=== PATIENT | female | born 1950 | race African-American/Black ===

== ENCOUNTER 2019-06-05 02:36 | Inpatient (IN) ==
[2019-06-05 04:07] LABS: Basophils # 0.1 10*3/uL (0.0-0.2); Basophils % 0.2 % (0.0-0.8); Eosinophils % 0.1 % (0.00-10.9); Hemoglobin 8.6 GM/DL (12.0-16.0); Immature Granulocytes % 3.6 %; Immature Granulocytes Absolute 1.31 #; Lymphocytes # 1.8 10*3/uL (1.4-4.0); Lymphocytes % 4.9 % (21.3-54.2); Mean Corpuscular HGB Conc 31.9 GM/DL (32-36); Mean Corpuscular Volume 90.6 FL (87-102); Mean Platelet Volume 9.7 FL (9.6-12.0); Monocytes % 4.5 % (1.7-12.7); Neutrophils % 86.7 % (38.7-73.9); Platelet Count 607 T/CUMM (130-400); Red Blood Count 2.98 MC/CUMM (3.8-5.5); White Blood Count 36.3 T/CUMM (4-12)
[2019-06-05 04:18] LABS: INR 1.3; PT Patient Result 14.3 SECS (9.6-12.2)
[2019-06-05 04:55] LABS: Albumin 1.5 G/DL (3.4-5.0); Bilirubin,Total 0.5 MG/DL (0.2-1.0); Calcium 8.9 MG/DL (8.5-10.1); Osmolality,Calculated 265.5 MOS/KG (273-304); Total Protein 7.5 G/DL (6.4-8.3)
[2019-06-05] MEDS ORDERED: NITROGLYCERIN SL 0.4 MG TABLET SL STA (05:15)
[2019-06-05] MEDS ORDERED: ASPIRIN EC 325 MG TABLET PO STA (05:15)
[2019-06-05] MEDS ORDERED: LEVOFLOXACIN INJ 750 MG in PREMIX 1 EACH IV STA (05:40)
[2019-06-05 06:16] LABS: Apearance,Urine Slightly Hazy (Clear); Bilirubin,Urine Negative (Negative); Blood, Urine Small mg/dL (Negative); Glucose,Urine (UA) Negative (Negative); Hyaline Casts,Urine 3 /LPF (0-3); Ketones,Urine Negative (Negative); Mucus,Urine Occasional /LPF (Occasional); Nitrite,Urine Negative (Negative); Protein,Urine 30 MG/DL; RBC,Urine 7 /HPF (0-4); Squamous Epithelial Cell,Urine Few /HPF (0-10); Urine Color Yellow (Yellow); Urine Specific Gravity 1.021 (1.001-1.035); Urine Urobilinogen < 2.0 EU/DL (0.2-1.0); WBC,Urine 8 /HPF (0-6)
[2019-06-05 06:16] LABS: Anisocytosis 1+; Band Neutrophils 1 % (0-10); Lymphocytes 10 % (20-55); Platelet Estimate Increased; Segmented Neutrophils 85 % (50-85); Total Cells Counted 100
[2019-06-05] MEDS ORDERED: ONDANSETRON 4 MG/2 ML VIAL IV PRN (10:16)
[2019-06-05] MEDS ORDERED: CALCIUM (CARBONATE) 600 MG TABLET PO PRN (10:23)
[2019-06-05] MEDS: PIPERACILLIN/TAZOBACTAM 3,375 MG in SODIUM CHLORIDE 0.9% 100 ML IV SCH ×2 (12:22→21:42)
[2019-06-05 12:49] LABS: % Iron Saturation 22.7 % (18-50); Ferritin 1874.5 ng/ml (8-252)
[2019-06-05 12:56] LABS: Folate 6.9 NG/ML (5.4-24.0)
[2019-06-05] MEDS: ALBUTEROL/IPRATROPIUM 3 ML NEB RESP TX SCH ×2 (14:24→20:03)
[2019-06-05] MEDS: VANCOMYCIN INJ 1,500 MG in SODIUM CHLORIDE 0.9% 500 ML IV SCH (17:10)
[2019-06-06] MEDS: ALBUTEROL/IPRATROPIUM 3 ML NEB RESP TX SCH ×4 (00:15→19:18)
[2019-06-06] MEDS: PIPERACILLIN/TAZOBACTAM 3,375 MG in SODIUM CHLORIDE 0.9% 100 ML IV SCH ×3 (05:04→21:35)
[2019-06-06 05:55] LABS: Basophils # 0.1 10*3/uL (0.0-0.2); Basophils % 0.2 % (0.0-0.8); Eosinophils % 0.1 % (0.00-10.9); Hematocrit 26.4 VOL% (35.7-47.0); Hemoglobin 8.6 GM/DL (12.0-16.0); Immature Granulocytes % 4.1 %; Lymphocytes # 2.3 10*3/uL (1.4-4.0); Lymphocytes % 6.4 % (21.3-54.2); Mean Corpuscular HGB Conc 32.6 GM/DL (32-36); Mean Corpuscular Volume 89.8 FL (87-102); Mean Platelet Volume 9.4 FL (9.6-12.0); Monocytes % 4.9 % (1.7-12.7); Neutrophils % 84.3 % (38.7-73.9); Platelet Count 571 T/CUMM (130-400); Red Blood Count 2.94 MC/CUMM (3.8-5.5); White Blood Count 36.7 T/CUMM (4-12)
[2019-06-06 06:17] LABS: Albumin 1.4 G/DL (3.4-5.0); Calcium 8.8 MG/DL (8.5-10.1); Osmolality,Calculated 273.1 MOS/KG (273-304); Risk Ratio 7.94; Thyroid Stimulating Hormone 2.55 uIU/ml (0.358-3.74); Total Protein 7.3 G/DL (6.4-8.3); VLDL CHOLESTEROL 13.6 MG/DL
[2019-06-06 06:18] LABS: Anisocytosis 1+; Band Neutrophils 2 % (0-10); Eosinophils 1 % (0-10); Hypochromasia 1+; Lymphocytes 7 % (20-55); Microcytosis 1+; Platelet Estimate Increased; Segmented Neutrophils 84 % (50-85); Total Cells Counted 100
[2019-06-06] MEDS: ASPIRIN EC 81 MG TABLET PO SCH (09:39)
[2019-06-06] MEDS: PANTOPRAZOLE 40 MG TABLET PO SCH (09:39)
[2019-06-06] MEDS: amLODIPine 5 MG TABLET PO SCH (09:39)
[2019-06-06] MEDS: allopurinoL 300 MG TABLET PO SCH (09:39)
[2019-06-06] MEDS: METOPROLOL SUCCINATE XL 50 MG TABLET PO SCH (09:39)
[2019-06-06] MEDS: POTASSIUM CHLORIDE 10 MEQ TABLET PO SCH (09:39)
[2019-06-06] MEDS: VANCOMYCIN INJ 1,500 MG in SODIUM CHLORIDE 0.9% 500 ML IV SCH (12:16)
[2019-06-07] MEDS: ALBUTEROL/IPRATROPIUM 3 ML NEB RESP TX SCH ×4 (00:07→19:48)
[2019-06-07] MEDS: PIPERACILLIN/TAZOBACTAM 3,375 MG in SODIUM CHLORIDE 0.9% 100 ML IV SCH ×3 (05:08→20:44)
[2019-06-07 05:58] LABS: Basophils # 0.1 10*3/uL (0.0-0.2); Basophils % 0.2 % (0.0-0.8); Eosinophils # 0.1 10*3/uL (0.0-0.87); Eosinophils % 0.2 % (0.00-10.9); Immature Granulocytes % 3.4 %; Immature Granulocytes Absolute 1.12 #; Lymphocytes # 1.9 10*3/uL (1.4-4.0); Lymphocytes % 5.9 % (21.3-54.2); Mean Corpuscular HGB Conc 33.3 GM/DL (32-36); Mean Corpuscular Volume 88.2 FL (87-102); Mean Platelet Volume 9.6 FL (9.6-12.0); Monocytes % 4.4 % (1.7-12.7); Neutrophils % 85.9 % (38.7-73.9); Platelet Count 578 T/CUMM (130-400); Red Blood Count 2.72 MC/CUMM (3.8-5.5); Red Cell Distribution Width 15.2 % (9.3-17.3)
[2019-06-07 06:18] LABS: Band Neutrophils 2 % (0-10); Hypochromasia 1+; Lymphocytes 5 % (20-55); Microcytosis 1+; Platelet Estimate Adequate; Segmented Neutrophils 91 % (50-85); Total Cells Counted 100
[2019-06-07 06:19] LABS: Albumin 1.4 G/DL (3.4-5.0); Bilirubin,Total 1.5 MG/DL (0.2-1.0); Calcium 8.7 MG/DL (8.5-10.1); Osmolality,Calculated 277.7 MOS/KG (273-304); Total Protein 7.3 G/DL (6.4-8.3)
[2019-06-07 07:06] LABS: HIV Antigen/Antibody Result Nonreactive (Nonreactive)
[2019-06-07 07:25] LABS: Total Protein (Chem) 7.3 G/DL (6.4-8.3)
[2019-06-07] MEDS: amLODIPine 5 MG TABLET PO SCH (08:39)
[2019-06-07] MEDS: allopurinoL 300 MG TABLET PO SCH (08:39)
[2019-06-07] MEDS: METOPROLOL SUCCINATE XL 50 MG TABLET PO SCH (08:39)
[2019-06-07] MEDS: ASPIRIN EC 81 MG TABLET PO SCH (08:39)
[2019-06-07] MEDS: POTASSIUM CHLORIDE 10 MEQ TABLET PO SCH (08:39)
[2019-06-07] MEDS: PANTOPRAZOLE 40 MG TABLET PO SCH (08:39)
[2019-06-07 10:24] LABS: Albumin (SPE) 2.1 G/DL (3.2-5.3); Albumin (SPE) Rel % 28.5 %; Alpha 1 (SPE) 0.7 G/DL (0.1-0.4); Alpha 1 (SPE) Rel % 9.3 %; Alpha 2 (SPE) 1.3 G/DL (0.4-1.0); Alpha 2 (SPE) Rel % 18.4 %; Beta (SPE) Rel % 14.1 %; Gamma (SPE) 2.2 G/DL (0.7-1.7); Gamma (SPE) Rel % 29.7 %
[2019-06-07] MEDS: POLYETHYLENE GLYCOL POWDER 17 GM PACK PO SCH (15:17)
[2019-06-07 20:43] LABS: Total Protein 24 Hr Ur Result 686 MG/24HR (0-149.1); Total Volume,Urine 1400 ML (400-2000)
[2019-06-07] MEDS: ACETAMINOPHEN 325 MG TABLET PO PRN (20:45)
[2019-06-08] MEDS: ALBUTEROL/IPRATROPIUM 3 ML NEB RESP TX SCH ×4 (02:07→19:49)
[2019-06-08] MEDS: PIPERACILLIN/TAZOBACTAM 3,375 MG in SODIUM CHLORIDE 0.9% 100 ML IV SCH ×2 (04:39→15:58)
[2019-06-08 05:59] LABS: Basophils # 0.1 10*3/uL (0.0-0.2); Basophils % 0.2 % (0.0-0.8); Eosinophils % 0.1 % (0.00-10.9); Hematocrit 25.4 VOL% (35.7-47.0); Hemoglobin 7.9 GM/DL (12.0-16.0); Immature Granulocytes % 3.3 %; Immature Granulocytes Absolute 1.17 #; Lymphocytes # 2.1 10*3/uL (1.4-4.0); Lymphocytes % 5.8 % (21.3-54.2); Mean Corpuscular HGB Conc 31.1 GM/DL (32-36); Mean Platelet Volume 9.7 FL (9.6-12.0); Monocytes % 3.9 % (1.7-12.7); Neutrophils % 86.7 % (38.7-73.9); Platelet Count 596 T/CUMM (130-400); Red Blood Count 2.76 MC/CUMM (3.8-5.5); Red Cell Distribution Width 15.3 % (9.3-17.3); White Blood Count 35.1 T/CUMM (4-12)
[2019-06-08 06:21] LABS: Albumin 1.4 G/DL (3.4-5.0); Band Neutrophils 5 % (0-10); Bilirubin,Total 0.7 MG/DL (0.2-1.0); Calcium 8.7 MG/DL (8.5-10.1); Hypochromasia 1+; Lymphocytes 6 % (20-55); Osmolality,Calculated 276.7 MOS/KG (273-304); Platelet Estimate Adequate; Segmented Neutrophils 84 % (50-85); Total Cells Counted 100; Total Protein 7.3 G/DL (6.4-8.3)
[2019-06-08 06:22] LABS: Microcytosis 1+
[2019-06-08 07:13] LABS: 24 Hr Protein (Bench) 686 MG/24HR (0-149.1)
[2019-06-08] MEDS: PANTOPRAZOLE 40 MG TABLET PO SCH (08:43)
[2019-06-08] MEDS: POTASSIUM CHLORIDE 10 MEQ TABLET PO SCH (08:43)
[2019-06-08] MEDS: POLYETHYLENE GLYCOL POWDER 17 GM PACK PO SCH (08:43)
[2019-06-08] MEDS: allopurinoL 300 MG TABLET PO SCH (08:44)
[2019-06-08] MEDS: amLODIPine 5 MG TABLET PO SCH (08:44)
[2019-06-08] MEDS: ASPIRIN EC 81 MG TABLET PO SCH (08:44)
[2019-06-08] MEDS: METOPROLOL SUCCINATE XL 50 MG TABLET PO SCH (08:44)
[2019-06-09] MEDS: ALBUTEROL/IPRATROPIUM 3 ML NEB RESP TX SCH ×4 (00:13→19:17)
[2019-06-09] MEDS: PIPERACILLIN/TAZOBACTAM 3,375 MG in SODIUM CHLORIDE 0.9% 100 ML IV SCH ×3 (02:10→16:51)
[2019-06-09] MEDS: POTASSIUM CHLORIDE 10 MEQ TABLET PO SCH (09:42)
[2019-06-09] MEDS: amLODIPine 5 MG TABLET PO SCH (09:42)
[2019-06-09] MEDS: METOPROLOL SUCCINATE XL 50 MG TABLET PO SCH (09:42)
[2019-06-09] MEDS: allopurinoL 300 MG TABLET PO SCH (09:42)
[2019-06-09] MEDS: ASPIRIN EC 81 MG TABLET PO SCH (09:42)
[2019-06-09] MEDS: POLYETHYLENE GLYCOL POWDER 17 GM PACK PO SCH (09:42)
[2019-06-09] MEDS: PANTOPRAZOLE 40 MG TABLET PO SCH (09:42)
[2019-06-09 10:31] LABS: Basophils # 0.1 10*3/uL (0.0-0.2); Basophils % 0.2 % (0.0-0.8); Eosinophils % 0.1 % (0.00-10.9); Hematocrit 25.2 VOL% (35.7-47.0); Immature Granulocytes % 3.7 %; Immature Granulocytes Absolute 1.26 #; Lymphocytes # 1.5 10*3/uL (1.4-4.0); Lymphocytes % 4.4 % (21.3-54.2); Mean Corpuscular HGB Conc 31.7 GM/DL (32-36); Mean Corpuscular Volume 90.3 FL (87-102); Mean Platelet Volume 9.5 FL (9.6-12.0); Monocytes % 3.8 % (1.7-12.7); Neutrophils % 87.8 % (38.7-73.9); Platelet Count 560 T/CUMM (130-400); Red Blood Count 2.79 MC/CUMM (3.8-5.5); Red Cell Distribution Width 15.2 % (9.3-17.3); White Blood Count 33.8 T/CUMM (4-12)
[2019-06-09 10:50] LABS: Calcium 8.8 MG/DL (8.5-10.1); Hypochromasia 1+; Osmolality,Calculated 276.1 MOS/KG (273-304); Platelet Estimate Adequate
[2019-06-09 10:51] LABS: Macrocytosis Slight; Polychromasia Slight
[2019-06-09 11:07] LABS: Band Neutrophils 7 % (0-10); Lymphocytes 4 % (20-55); Segmented Neutrophils 85 % (50-85); Total Cells Counted 100
[2019-06-10] MEDS: PIPERACILLIN/TAZOBACTAM 3,375 MG in SODIUM CHLORIDE 0.9% 100 ML IV SCH ×3 (00:23→16:19)
[2019-06-10] MEDS: ALBUTEROL/IPRATROPIUM 3 ML NEB RESP TX SCH ×4 (01:00→19:15)
[2019-06-10 04:20] LABS: Basophils # 0.1 10*3/uL (0.0-0.2); Basophils % 0.2 % (0.0-0.8); Eosinophils % 0.1 % (0.00-10.9); Hematocrit 24.1 VOL% (35.7-47.0); Hemoglobin 7.6 GM/DL (12.0-16.0); Immature Granulocytes % 3.5 %; Immature Granulocytes Absolute 1.16 #; Lymphocytes # 1.7 10*3/uL (1.4-4.0); Lymphocytes % 5.2 % (21.3-54.2); Mean Corpuscular HGB Conc 31.5 GM/DL (32-36); Mean Corpuscular Volume 89.9 FL (87-102); Mean Platelet Volume 9.6 FL (9.6-12.0); Monocytes % 3.7 % (1.7-12.7); Neutrophils % 87.3 % (38.7-73.9); Platelet Count 593 T/CUMM (130-400); Red Blood Count 2.68 MC/CUMM (3.8-5.5); Red Cell Distribution Width 15.5 % (9.3-17.3); White Blood Count 33.5 T/CUMM (4-12)
[2019-06-10 04:41] LABS: Calcium 8.6 MG/DL (8.5-10.1); Osmolality,Calculated 272.4 MOS/KG (273-304)
[2019-06-10 04:44] LABS: Lymphocytes 5 % (20-55); Platelet Estimate Adequate; Segmented Neutrophils 92 % (50-85); Total Cells Counted 100
[2019-06-10 04:45] LABS: Hypochromasia 1+; Macrocytosis Slight
[2019-06-10] MEDS: POLYETHYLENE GLYCOL POWDER 17 GM PACK PO SCH (08:39)
[2019-06-10] MEDS: POTASSIUM CHLORIDE 10 MEQ TABLET PO SCH (08:40)
[2019-06-10] MEDS: ASPIRIN EC 81 MG TABLET PO SCH (08:40)
[2019-06-10] MEDS: PANTOPRAZOLE 40 MG TABLET PO SCH (08:40)
[2019-06-10] MEDS: amLODIPine 5 MG TABLET PO SCH (08:40)
[2019-06-10] MEDS: allopurinoL 300 MG TABLET PO SCH (08:40)
[2019-06-10] MEDS: METOPROLOL SUCCINATE XL 50 MG TABLET PO SCH (08:41)
[2019-06-10] MEDS ORDERED: GLUCAGON 1 MG VIAL IM PRN (13:39)
[2019-06-10] MEDS ORDERED: DEXTROSE 10% 250 ML BAG IV PRN (13:39)
[2019-06-11] MEDS: PIPERACILLIN/TAZOBACTAM 3,375 MG in SODIUM CHLORIDE 0.9% 100 ML IV SCH ×2 (00:24→09:27)
[2019-06-11] MEDS: ALBUTEROL/IPRATROPIUM 3 ML NEB RESP TX SCH ×4 (01:15→19:18)
[2019-06-11 05:40] LABS: Basophils # 0.1 10*3/uL (0.0-0.2); Basophils % 0.2 % (0.0-0.8); Eosinophils % 0.1 % (0.00-10.9); Hematocrit 25.6 VOL% (35.7-47.0); Hemoglobin 8.2 GM/DL (12.0-16.0); Immature Granulocytes % 3.5 %; Immature Granulocytes Absolute 1.18 #; Lymphocytes # 2.1 10*3/uL (1.4-4.0); Lymphocytes % 6.4 % (21.3-54.2); Mean Platelet Volume 9.4 FL (9.6-12.0); Monocytes % 3.8 % (1.7-12.7); Platelet Count 624 T/CUMM (130-400); Red Blood Count 2.91 MC/CUMM (3.8-5.5); Red Cell Distribution Width 15.4 % (9.3-17.3); White Blood Count 33.3 T/CUMM (4-12)
[2019-06-11 05:53] LABS: Calcium 8.4 MG/DL (8.5-10.1); Osmolality,Calculated 271.4 MOS/KG (273-304)
[2019-06-11 06:16] LABS: Anisocytosis 1+; Hypochromasia 1+; Lymphocytes 10 % (20-55); Segmented Neutrophils 90 % (50-85); Total Cells Counted 100
[2019-06-11 06:17] LABS: Platelet Estimate Increased
[2019-06-11] MEDS: amLODIPine 5 MG TABLET PO SCH (09:27)
[2019-06-11] MEDS: METOPROLOL SUCCINATE XL 50 MG TABLET PO SCH (09:27)
[2019-06-11] MEDS: ASPIRIN EC 81 MG TABLET PO SCH (09:27)
[2019-06-11] MEDS: allopurinoL 300 MG TABLET PO SCH (09:27)
[2019-06-11] MEDS: PANTOPRAZOLE 40 MG TABLET PO SCH (09:27)
[2019-06-11] MEDS: POTASSIUM CHLORIDE 10 MEQ TABLET PO SCH (09:27)
[2019-06-11] MEDS: POLYETHYLENE GLYCOL POWDER 17 GM PACK PO SCH (09:27)
[2019-06-11] MEDS ORDERED: FUROSEMIDE 40 MG/4 ML VIAL IV ONE (16:00)
[2019-06-11] MEDS: MEROPENEM 500 MG in SODIUM CHLORIDE 0.9% 100 ML IV SCH ×2 (16:40→21:35)
[2019-06-12] MEDS: ALBUTEROL/IPRATROPIUM 3 ML NEB RESP TX SCH ×4 (02:50→20:10)
[2019-06-12] MEDS: MEROPENEM 500 MG in SODIUM CHLORIDE 0.9% 100 ML IV SCH ×4 (03:02→21:41)
[2019-06-12 06:29] LABS: Basophils # 0.1 10*3/uL (0.0-0.2); Basophils % 0.2 % (0.0-0.8); Eosinophils % 0.1 % (0.00-10.9); Hematocrit 23.7 VOL% (35.7-47.0); Hemoglobin 7.8 GM/DL (12.0-16.0); Immature Granulocytes % 3.1 %; Immature Granulocytes Absolute 0.92 #; Lymphocytes # 2.1 10*3/uL (1.4-4.0); Mean Corpuscular HGB Conc 32.9 GM/DL (32-36); Mean Corpuscular Volume 86.5 FL (87-102); Mean Platelet Volume 9.3 FL (9.6-12.0); Monocytes % 4.3 % (1.7-12.7); Neutrophils % 85.3 % (38.7-73.9); Platelet Count 585 T/CUMM (130-400); Red Blood Count 2.74 MC/CUMM (3.8-5.5); Red Cell Distribution Width 15.3 % (9.3-17.3); White Blood Count 29.7 T/CUMM (4-12)
[2019-06-12 06:57] LABS: Band Neutrophils 2 % (0-10); Lymphocytes 8 % (20-55); Segmented Neutrophils 86 % (50-85); Total Cells Counted 100
[2019-06-12 06:58] LABS: Hypochromasia 1+; Target Cells Slight
[2019-06-12 06:59] LABS: Macrocytosis Slight; Platelet Estimate Increased
[2019-06-12 07:34] LABS: Calcium 8.6 MG/DL (8.5-10.1); Osmolality,Calculated 270.4 MOS/KG (273-304)
[2019-06-12] MEDS: allopurinoL 300 MG TABLET PO SCH (09:03)
[2019-06-12] MEDS: METOPROLOL SUCCINATE XL 50 MG TABLET PO SCH (09:03)
[2019-06-12] MEDS: POTASSIUM CHLORIDE 10 MEQ TABLET PO SCH (09:03)
[2019-06-12] MEDS: amLODIPine 5 MG TABLET PO SCH (09:03)
[2019-06-12] MEDS: ASPIRIN EC 81 MG TABLET PO SCH (09:03)
[2019-06-12] MEDS: PANTOPRAZOLE 40 MG TABLET PO SCH (09:03)
[2019-06-12] MEDS: POLYETHYLENE GLYCOL POWDER 17 GM PACK PO SCH (09:03)
[2019-06-13] MEDS: ALBUTEROL/IPRATROPIUM 3 ML NEB RESP TX SCH ×3 (00:20→12:39)
[2019-06-13] MEDS: MEROPENEM 500 MG in SODIUM CHLORIDE 0.9% 100 ML IV SCH ×2 (03:49→08:37)
[2019-06-13] MEDS: ACETAMINOPHEN 325 MG TABLET PO PRN (03:55)
[2019-06-13 06:12] LABS: Basophils % 0.2 % (0.0-0.8); Eosinophils % 0.1 % (0.00-10.9); Hematocrit 23.5 VOL% (35.7-47.0); Hemoglobin 7.5 GM/DL (12.0-16.0); Immature Granulocytes % 2.4 %; Immature Granulocytes Absolute 0.54 #; Lymphocytes % 8.9 % (21.3-54.2); Mean Corpuscular HGB Conc 31.9 GM/DL (32-36); Mean Platelet Volume 9.2 FL (9.6-12.0); Monocytes % 4.8 % (1.7-12.7); Neutrophils % 83.6 % (38.7-73.9); Platelet Count 606 T/CUMM (130-400); Red Blood Count 2.67 MC/CUMM (3.8-5.5); Red Cell Distribution Width 15.1 % (9.3-17.3); White Blood Count 22.3 T/CUMM (4-12)
[2019-06-13 06:34] LABS: Calcium 8.3 MG/DL (8.5-10.1); Osmolality,Calculated 273.1 MOS/KG (273-304)
[2019-06-13 07:36] LABS: Band Neutrophils 1 % (0-10); Lymphocytes 12 % (20-55); Segmented Neutrophils 81 % (50-85); Total Cells Counted 100
[2019-06-13 07:37] LABS: Hypochromasia 1+; Macrocytosis Slight; Platelet Estimate Increased; Target Cells Slight
[2019-06-13] MEDS: POTASSIUM CHLORIDE 10 MEQ TABLET PO SCH (08:34)
[2019-06-13] MEDS: PANTOPRAZOLE 40 MG TABLET PO SCH (08:34)
[2019-06-13] MEDS: allopurinoL 300 MG TABLET PO SCH (08:34)
[2019-06-13] MEDS: amLODIPine 5 MG TABLET PO SCH (08:34)
[2019-06-13] MEDS: ASPIRIN EC 81 MG TABLET PO SCH (08:34)
[2019-06-13] MEDS: POLYETHYLENE GLYCOL POWDER 17 GM PACK PO SCH (08:34)
[2019-06-13] MEDS: METOPROLOL SUCCINATE XL 50 MG TABLET PO SCH (08:35)
[2019-06-13 12:00] VITALS: BP 119/64
== END 2019-06-13 14:45 | disposition home or self-care (01) | DRG 689 ==
LOC: N.ED 02:36 → SUATTDRO 10:14 → N.EDINP 10:14 → N.2E 11:22
PROVIDERS: ADMIT Internal Medicine; ATTEND Internal Medicine Geriatric Medicine

== ENCOUNTER 2019-09-25 22:15 | Inpatient (IN) ==
[2019-09-25 22:50] LABS: Basophils % 0.2 % (0.0-0.8); Eosinophils % 0.2 % (0.00-10.9); Hematocrit 31.6 VOL% (35.7-47.0); Hemoglobin 9.9 GM/DL (12.0-16.0); Immature Granulocytes % 1.3 %; Immature Granulocytes Absolute 0.23 #; Lymphocytes # 2.1 10*3/uL (1.4-4.0); Lymphocytes % 11.5 % (21.3-54.2); Mean Corpuscular HGB Conc 31.3 GM/DL (32-36); Mean Corpuscular Volume 85.9 FL (87-102); Mean Platelet Volume 8.6 FL (9.6-12.0); Monocytes % 6.4 % (1.7-12.7); Neutrophils % 80.4 % (38.7-73.9); Platelet Count 603 T/CUMM (130-400); Red Blood Count 3.68 MC/CUMM (3.8-5.5); Red Cell Distribution Width 16.2 % (9.3-17.3); White Blood Count 18.3 T/CUMM (4-12)
[2019-09-25 23:08] LABS: Alanine Aminotransferase 96 U/L (13-56); Albumin 2.4 G/DL (3.4-5.0); Alkaline Phosphatase 213 U/L (45-117); Aspartate Amino Transferase 74 U/L (0-37); Bilirubin,Total < 0.39 MG/DL (0.2-1.0); Blood Urea Nitrogen 11 MG/DL (7-18); Calcium 9.8 MG/DL (8.5-10.1); Estimated Glom Filtration Rate 114 ML/MIN; Glucose 112 MG/DL (74-106); Osmolality,Calculated 259.8 MOS/KG (273-304)
[2019-09-25] MEDS ORDERED: LEVOFLOXACIN INJ 750 MG in PREMIX 1 EACH IV STA (23:38)
[2019-09-26 00:09] LABS: Apearance,Urine CLEAR (Clear); Bilirubin,Urine Negative (Negative); Blood, Urine Negative (Negative); Glucose,Urine (UA) Negative (Negative); Ketones,Urine Negative (Negative); Mucus,Urine Occasional /LPF (Occasional); Nitrite,Urine Negative (Negative); Protein,Urine Negative; RBC,Urine 3 /HPF (0-4); Squamous Epithelial Cell,Urine Occasional /HPF (0-10); Urine Color Yellow (Yellow); Urine Specific Gravity 1.013 (1.001-1.035); WBC,Urine 1 /HPF (0-6)
[2019-09-26] MEDS ORDERED: PROMETHAZINE 25 MG/1 ML VIAL IM PRN (02:16)
[2019-09-26] MEDS ORDERED: diphenhydrAMINE CAP 25 MG CAPSULE PO PRN (02:16)
[2019-09-26] MEDS ORDERED: NICOTINE 21 MG/24 HR PATCH TRANSDERM PRN (02:16)
[2019-09-26] MEDS ORDERED: ZALEPLON 5 MG CAPSULE PO PRN (02:16)
[2019-09-26] MEDS ORDERED: DOCUSATE SODIUM 100 MG CAPSULE PO PRN (02:16)
[2019-09-26] MEDS ORDERED: guaiFENesin/DM ER 600-30 MG TABLET PO PRN (02:16)
[2019-09-26] MEDS ORDERED: hydrALAZINE 20 MG/1 ML VIAL IV PRN (02:16)
[2019-09-26] MEDS ORDERED: DEXTROSE 50% 25 GM/50 ML VIAL IV PRN (02:16)
[2019-09-26] MEDS ORDERED: GLUCAGON 1 MG VIAL IM PRN (02:16)
[2019-09-26] MEDS ORDERED: ACETAMINOPHEN 325 MG TABLET PO PRN (02:16)
[2019-09-26] MEDS ORDERED: ONDANSETRON 4 MG/2 ML VIAL IV PRN (02:16)
[2019-09-26] MEDS: SODIUM CHLORIDE 0.9% 1,000 ML IV SCH ×2 (03:37→17:35)
[2019-09-26] MEDS ORDERED: ENOXAPARIN 100 MG/ML SYRINGE SUBCUT ONE (06:00)
[2019-09-26 06:47] LABS: Basophils % 0.2 % (0.0-0.8); Eosinophils # 0.1 10*3/uL (0.0-0.87); Eosinophils % 0.3 % (0.00-10.9); Hemoglobin 10.1 GM/DL (12.0-16.0); Immature Granulocytes % 1.1 %; Immature Granulocytes Absolute 0.22 #; Lymphocytes # 3.4 10*3/uL (1.4-4.0); Lymphocytes % 17.7 % (21.3-54.2); Mean Corpuscular HGB Conc 31.6 GM/DL (32-36); Mean Corpuscular Volume 85.1 FL (87-102); Mean Platelet Volume 8.7 FL (9.6-12.0); Monocytes % 8.6 % (1.7-12.7); Neutrophils % 72.1 % (38.7-73.9); Platelet Count 585 T/CUMM (130-400); Red Blood Count 3.76 MC/CUMM (3.8-5.5); Red Cell Distribution Width 16.2 % (9.3-17.3); White Blood Count 19.2 T/CUMM (4-12)
[2019-09-26 07:04] LABS: Alanine Aminotransferase 79 U/L (13-56); Albumin 2.2 G/DL (3.4-5.0); Alkaline Phosphatase 213 U/L (45-117); Aspartate Amino Transferase 53 U/L (0-37); Bilirubin,Total < 0.39 MG/DL (0.2-1.0); Blood Urea Nitrogen 9 MG/DL (7-18); Calcium 9.7 MG/DL (8.5-10.1); Estimated Glom Filtration Rate 113 ML/MIN; Glucose 113 MG/DL (74-106); Osmolality,Calculated 263.5 MOS/KG (273-304); Total Protein 8.7 G/DL (6.4-8.3)
[2019-09-26] MEDS ORDERED: POLYETHYLENE GLYCOL POWDER 17 GM PACK PO PRN (09:25)
[2019-09-26] MEDS: methylPREDNISolone SOD SUC 40 MG/1 ML VIAL IV SCH ×3 (09:53→23:33)
[2019-09-26] MEDS: POTASSIUM CHLORIDE 10 MEQ TABLET PO SCH (09:56)
[2019-09-26] MEDS: PANTOPRAZOLE 40 MG TABLET PO SCH (09:56)
[2019-09-26] MEDS: amLODIPine 5 MG TABLET PO SCH (09:56)
[2019-09-26] MEDS: METOPROLOL SUCCINATE XL 50 MG TABLET PO SCH ×2 (09:56→20:39)
[2019-09-26] MEDS: ASPIRIN EC 81 MG TABLET PO SCH (09:56)
[2019-09-26] MEDS: allopurinoL 300 MG TABLET PO SCH (09:56)
[2019-09-26] MEDS: VANCOMYCIN INJ 1,250 MG in SODIUM CHLORIDE 0.9% 250 ML IV SCH ×2 (11:39→22:09)
[2019-09-26] MEDS: LEVOFLOXACIN INJ 500 MG in PREMIX 1 EACH IV SCH (20:41)
[2019-09-27 06:10] LABS: Basophils % 0.1 % (0.0-0.8); Hematocrit 30.1 VOL% (35.7-47.0); Hemoglobin 9.5 GM/DL (12.0-16.0); Immature Granulocytes % 1.1 %; Immature Granulocytes Absolute 0.24 #; Lymphocytes # 1.3 10*3/uL (1.4-4.0); Lymphocytes % 6.2 % (21.3-54.2); Mean Corpuscular HGB Conc 31.6 GM/DL (32-36); Mean Corpuscular Volume 84.8 FL (87-102); Mean Platelet Volume 9.4 FL (9.6-12.0); Monocytes % 2.2 % (1.7-12.7); Neutrophils % 90.4 % (38.7-73.9); Platelet Count 643 T/CUMM (130-400); Red Blood Count 3.55 MC/CUMM (3.8-5.5); Red Cell Distribution Width 16.2 % (9.3-17.3); White Blood Count 21.7 T/CUMM (4-12)
[2019-09-27 06:36] LABS: Hypochromasia 2+; Lymphocytes 10 % (20-55); Microcytosis Slight; Ovalocytes Slight; Platelet Estimate Increased; Segmented Neutrophils 89 % (50-85); Total Cells Counted 100
[2019-09-27 06:43] LABS: Calcium 10.5 MG/DL (8.5-10.1); Osmolality,Calculated 269.1 MOS/KG (273-304)
[2019-09-27 06:46] LABS: Albumin 2.1 G/DL (3.4-5.0); Bilirubin,Direct 0.1 MG/DL (0.0-0.20); Bilirubin,Indirect 0.7 MG/DL (0.0-1.0); Bilirubin,Total 0.8 MG/DL (0.2-1.0); Total Protein 8.3 G/DL (6.4-8.3)
[2019-09-27] MEDS: ASPIRIN EC 81 MG TABLET PO SCH (09:05)
[2019-09-27] MEDS: allopurinoL 300 MG TABLET PO SCH (09:05)
[2019-09-27] MEDS: METOPROLOL SUCCINATE XL 50 MG TABLET PO SCH ×2 (09:05→20:39)
[2019-09-27] MEDS: amLODIPine 5 MG TABLET PO SCH (09:05)
[2019-09-27] MEDS: methylPREDNISolone SOD SUC 40 MG/1 ML VIAL IV SCH ×2 (09:05→15:51)
[2019-09-27] MEDS: PANTOPRAZOLE 40 MG TABLET PO SCH (09:05)
[2019-09-27] MEDS: POTASSIUM CHLORIDE 10 MEQ TABLET PO SCH (09:05)
[2019-09-27 10:44] LABS: % Iron Saturation 24.6 % (18-50)
[2019-09-27] MEDS: VANCOMYCIN INJ 1,250 MG in SODIUM CHLORIDE 0.9% 250 ML IV SCH ×2 (10:54→22:16)
[2019-09-27 10:55] LABS: Ferritin 2979.1 ng/ml (8-252)
[2019-09-27] MEDS: SODIUM CHLORIDE 0.9% 1,000 ML IV SCH (18:16)
[2019-09-27] MEDS: LEVOFLOXACIN INJ 500 MG in PREMIX 1 EACH IV SCH (20:39)
[2019-09-27] MEDS: MORPHINE 4 MG/1 ML VIAL IV PRN (20:40)
[2019-09-28] MEDS: MORPHINE 4 MG/1 ML VIAL IV PRN ×2 (01:03→04:08)
[2019-09-28] MEDS: methylPREDNISolone SOD SUC 40 MG/1 ML VIAL IV SCH ×2 (01:03→09:10)
[2019-09-28 04:45] LABS: Basophils % 0.1 % (0.0-0.8); Hematocrit 30.1 VOL% (35.7-47.0); Hemoglobin 9.6 GM/DL (12.0-16.0); Immature Granulocytes % 1.3 %; Immature Granulocytes Absolute 0.36 #; Lymphocytes # 1.6 10*3/uL (1.4-4.0); Lymphocytes % 5.7 % (21.3-54.2); Mean Corpuscular HGB Conc 31.9 GM/DL (32-36); Mean Corpuscular Volume 85.3 FL (87-102); Mean Platelet Volume 8.9 FL (9.6-12.0); Neutrophils % 89.9 % (38.7-73.9); Platelet Count 664 T/CUMM (130-400); Red Blood Count 3.53 MC/CUMM (3.8-5.5); Red Cell Distribution Width 16.4 % (9.3-17.3); White Blood Count 28.7 T/CUMM (4-12)
[2019-09-28 05:05] LABS: Calcium 10.2 MG/DL (8.5-10.1); Osmolality,Calculated 273.8 MOS/KG (273-304)
[2019-09-28 05:07] LABS: Lymphocytes 7 % (20-55); Segmented Neutrophils 92 % (50-85); Total Cells Counted 100
[2019-09-28 05:08] LABS: Hypochromasia 2+; Microcytosis 1+; Platelet Estimate Increased; Polychromasia Slight
[2019-09-28] MEDS: PANTOPRAZOLE 40 MG TABLET PO SCH (09:10)
[2019-09-28] MEDS: POTASSIUM CHLORIDE 10 MEQ TABLET PO SCH (09:10)
[2019-09-28] MEDS: amLODIPine 5 MG TABLET PO SCH (09:10)
[2019-09-28] MEDS: allopurinoL 300 MG TABLET PO SCH (09:10)
[2019-09-28] MEDS: METOPROLOL SUCCINATE XL 50 MG TABLET PO SCH ×2 (09:10→21:27)
[2019-09-28] MEDS: ASPIRIN EC 81 MG TABLET PO SCH (09:10)
[2019-09-28] MEDS: VANCOMYCIN INJ 1,250 MG in SODIUM CHLORIDE 0.9% 250 ML IV SCH ×2 (10:46→22:50)
[2019-09-28] MEDS: ENOXAPARIN 40 MG/0.4 ML SYRINGE SUBCUT SCH (14:14)
[2019-09-28] MEDS: SODIUM CHLORIDE 0.9% 1,000 ML IV SCH ×2 (14:17→21:29)
[2019-09-28] MEDS: methylPREDNISolone SOD SUC 125 MG/2 ML VIAL IV SCH ×2 (16:08→22:49)
[2019-09-28 21:26] LABS: Cyclic Citrull Peptide Interp Negative
[2019-09-28] MEDS: LEVOFLOXACIN INJ 500 MG in PREMIX 1 EACH IV SCH (21:27)
[2019-09-29] MEDS: methylPREDNISolone SOD SUC 125 MG/2 ML VIAL IV SCH ×4 (04:30→22:12)
[2019-09-29] MEDS: SODIUM CHLORIDE 0.9% 1,000 ML IV SCH ×3 (04:32→21:11)
[2019-09-29] MEDS: PANTOPRAZOLE 40 MG TABLET PO SCH (09:42)
[2019-09-29] MEDS: ASPIRIN EC 81 MG TABLET PO SCH (09:42)
[2019-09-29] MEDS: allopurinoL 300 MG TABLET PO SCH (09:42)
[2019-09-29] MEDS: amLODIPine 10 MG TABLET PO SCH (09:42)
[2019-09-29] MEDS: POTASSIUM CHLORIDE 10 MEQ TABLET PO SCH (09:42)
[2019-09-29] MEDS: METOPROLOL SUCCINATE XL 50 MG TABLET PO SCH ×2 (09:42→21:01)
[2019-09-29] MEDS: VANCOMYCIN INJ 1,250 MG in SODIUM CHLORIDE 0.9% 250 ML IV SCH ×2 (10:50→22:18)
[2019-09-29] MEDS: ENOXAPARIN 40 MG/0.4 ML SYRINGE SUBCUT SCH (13:51)
[2019-09-29] MEDS: LEVOFLOXACIN INJ 500 MG in PREMIX 1 EACH IV SCH (21:01)
[2019-09-30] MEDS: methylPREDNISolone SOD SUC 125 MG/2 ML VIAL IV SCH ×4 (04:27→22:58)
[2019-09-30] MEDS: PANTOPRAZOLE 40 MG TABLET PO SCH (08:57)
[2019-09-30] MEDS: allopurinoL 300 MG TABLET PO SCH (08:57)
[2019-09-30] MEDS: ASPIRIN EC 81 MG TABLET PO SCH (08:57)
[2019-09-30] MEDS: amLODIPine 10 MG TABLET PO SCH (08:57)
[2019-09-30] MEDS: POTASSIUM CHLORIDE 10 MEQ TABLET PO SCH (08:57)
[2019-09-30] MEDS: METOPROLOL SUCCINATE XL 50 MG TABLET PO SCH ×2 (08:57→20:45)
[2019-09-30] MEDS: VANCOMYCIN INJ 1,250 MG in SODIUM CHLORIDE 0.9% 250 ML IV SCH ×2 (09:37→23:00)
[2019-09-30] MEDS: SODIUM CHLORIDE 0.9% 1,000 ML IV SCH (10:49)
[2019-09-30] MEDS: ENOXAPARIN 40 MG/0.4 ML SYRINGE SUBCUT SCH (12:08)
[2019-09-30] MEDS: LEVOFLOXACIN INJ 500 MG in PREMIX 1 EACH IV SCH (20:48)
[2019-10-01] MEDS: SODIUM CHLORIDE 0.9% 1,000 ML IV SCH ×2 (01:21→12:50)
[2019-10-01] MEDS: methylPREDNISolone SOD SUC 125 MG/2 ML VIAL IV SCH ×2 (04:31→09:52)
[2019-10-01] MEDS: PANTOPRAZOLE 40 MG TABLET PO SCH (08:40)
[2019-10-01] MEDS: ASPIRIN EC 81 MG TABLET PO SCH (08:40)
[2019-10-01] MEDS: METOPROLOL SUCCINATE XL 50 MG TABLET PO SCH (08:40)
[2019-10-01] MEDS: amLODIPine 10 MG TABLET PO SCH (08:40)
[2019-10-01] MEDS: allopurinoL 300 MG TABLET PO SCH (08:40)
[2019-10-01] MEDS: POTASSIUM CHLORIDE 10 MEQ TABLET PO SCH (08:40)
[2019-10-01 09:26] LABS: Myeloperoxidase Antibody < 0.2 U
[2019-10-01] MEDS: VANCOMYCIN INJ 1,250 MG in SODIUM CHLORIDE 0.9% 250 ML IV SCH (09:59)
[2019-10-01 10:40] LABS: Basophils # 0.1 10*3/uL (0.0-0.2); Basophils % 0.2 % (0.0-0.8); Hematocrit 35.3 VOL% (35.7-47.0); Hemoglobin 10.9 GM/DL (12.0-16.0); Immature Granulocytes Absolute 0.96 #; Lymphocytes # 1.7 10*3/uL (1.4-4.0); Mean Corpuscular HGB Conc 30.9 GM/DL (32-36); Mean Corpuscular Volume 86.5 FL (87-102); Mean Platelet Volume 8.8 FL (9.6-12.0); Monocytes % 2.2 % (1.7-12.7); NRBC # 0.06 10*3/uL; Neutrophils % 86.6 % (38.7-73.9); Platelet Count 683 T/CUMM (130-400); Red Blood Count 4.08 MC/CUMM (3.8-5.5); Red Cell Distribution Width 16.3 % (9.3-17.3)
[2019-10-01 11:05] LABS: Lymphocytes 7 % (20-55); Platelet Estimate Adequate; Segmented Neutrophils 86 % (50-85); Total Cells Counted 100
[2019-10-01 11:06] LABS: Hypochromasia 1+; Microcytosis Slight
[2019-10-01 11:09] LABS: Calcium 9.5 MG/DL (8.5-10.1); Osmolality,Calculated 279.1 MOS/KG (273-304)
[2019-10-01 12:30] VITALS: BP 140/76
[2019-10-01] MEDS: ENOXAPARIN 40 MG/0.4 ML SYRINGE SUBCUT SCH (12:51)
== END 2019-10-01 13:53 | disposition home or self-care (01) | DRG 546 ==
LOC: EDBD → EDUNIT# → N.ED 22:15 → SUATTDRO 09-26 02:16 → N.EDINP 09-26 02:16 → N.TELES 09-26 04:56
PROVIDERS: ADMIT Internal Medicine; ATTEND Internal Medicine